=== PATIENT | female | born 1990 | race Caucasian/White ===

== ENCOUNTER 2017-11-13 08:37 | Emergency (ER) | payer OTHER ==
[~2017-11-13] VITALS: Ht 157.5 cm; Wt 56.2 kg
[2017-11-13 08:43] VITALS: BP 122/82
[2017-11-13] MEDS ORDERED: MEDROL4 M2 PO (09:07)
--- NOTE | 2017-11-13 09:07 | ED GENERAL ADULT ---
History of Present Illness General Chief Complaint: Allergy Symptoms Stated Complaint: HIVES ALL OVER Source: patient Exam Limitations: no limitations Vital Signs & Intake/Output Vital Signs & Intake/Output Vital Signs Date Time Temp Pulse Resp B/P B/P Pulse O2 O2 Flow FiO2 Mean Ox Delivery Rate 11/13 0843 97.1 74 20 122/82 98 Room Air Allergies Coded Allergies: No Known Allergies (11/13/17) Reconcile Medications Epinephrine (Epipen) 0.3 MG/0.3 ML AUTO.INJCT 1 INJ IM ONCE PRN anaphylaxis Methylprednisolone. (Medrol) 4 MG TAB.DS.PK 1 DP PO AD rash 6 on day 1 then reduce by one tablet daily until gone Triage Note: PT TO ED C/O FULL BODY HIVES AND FACIAL SWELLING SINCE THIS AM. STATES SINCE LAST MONDAY SHE HAS BEEN HAVING A REACTION TO SOMETHING, BUT WORSE THIS AM. DENIES NEW SOAP, DETERGENT, LOTION, FOOD. HAS TRIED OTC PEPCID AND BENADRYL. HAS NOT TAKEN TODAY. Triage Nurses Notes Reviewed? yes Onset: Gradual Duration: day(s): Timing: intermittent : No Patient currently breastfeeds: No HPI: Any 7-year-old otherwise healthy female presented with intermittent rashes times 6 days. She reports full body hives that will intermittently improve with Benadryl and Pepcid. This morning she had worsening of the hives and some left- sided subjective eye swelling. The patient has no known allergies. She thinks that she is having an allergic reaction to something, but is unsure of what. She denies any new products. No recent fevers or infectious symptoms. No sick contacts. Denies dysphasia, lip/tongue swelling, chest pain, shortness of breath, abdominal pain, nausea, vomiting. Past History Travel History Traveled to [place] past 21 day No Medical History Any Pertinent Medical History? none Surgical History Surgical History: non-contributory Psychosocial History What is your primary language Kinyarwanda Tobacco Use: Never used ETOH Use: denies use Illicit Drug Use: denies illicit drug use Family History Hx Contributory? No Review of Systems Review of Systems Constitutional: Reports: no symptoms. EENTM: Reports: no symptoms. Respiratory: Reports: no symptoms. Cardiovascular: Reports: no symptoms. GI: Reports: no symptoms. Genitourinary: Reports: no symptoms. Musculoskeletal: Reports: no symptoms. Skin: Reports: see HPI. Neurological/Psychological: Reports: no symptoms. Hematologic/Endocrine: Reports: no symptoms. Immunologic/Allergic: Reports: no symptoms. All Other Systems: Reviewed and Negative Physical Exam Physical Exam General Appearance: well developed/nourished, no apparent distress, alert, awake Comments: Gen.: Well-nourished, well-developed, no acute distress. Head: Normocephalic, atraumatic. Eyes: Normal inspection bilaterally, no objective periorbital edema Ears: Normal inspection bilaterally Nose: Normal inspection Throat: No oropharyngeal edema, no angioedema Neck: Normal inspection Lungs: clear to auscultation bilaterally, normnal breath sounds Heart: regular rate and rhythm Abdomen: soft and non-tender Extremities: Normal inspection Neurologic: alert and oriented x3, steady gait Skin: warm and dry, diffuse full body hives Psychiatric: Normal mood and affect, no apparent delusions or hallucinations, behavior appropriate Core Measures ACS in differential dx? No CVA/TIA Diagnosis: No Sepsis Present: No Sepsis Focused Exam Completed? No Progress Differential Diagnoses I considered the following diagnoses in my evaluation of the patient: [Allergic reaction versus contact dermatitis versus viral exanthem, no evidence of anaphylaxis] Plan of Care: Patient given Rx Medrol Dosepak. Instructed to continue Benadryl and Pepcid. Given follow-up with dermatology and counseled on strict return precautions. Given an Rx for EpiPen to keep on her and states that she is already counseled on EpiPen use. Initial ED EKG: none Departure Departure Disposition: HOME OR SELF CARE Condition: Stable Clinical Impression Primary Impression: Rash Referrals: Cade COLEMAN,Callum Unknown (PCP/Family) Additional Instructions: Take Medrol Dosepak as prescribed. Continue Benadryl and Pepcid. Follow-up with dermatology for reevaluation. Return to the emergency department for any new or worsening symptoms. Departure Forms: Customer Survey General Discharge Information Prescriptions: Current Visit Scripts Methylprednisolone. (Medrol) 1 DP PO AD #1 DP 6 on day 1 then reduce by one tablet daily until gone Epinephrine (Epipen) 1 INJ IM ONCE PRN anaphylaxis #1 INJ Critical Care Note Critical Care Note Critical Care Time: non-applicable
[2017-11-13] MEDS ORDERED: EPIPEN0.3 MG/0.1 IM (09:15)
== END 2017-11-13 09:13 ==
LOC: ERH 08:37
DX: R21 Rash and other nonspecific skin eruption (principal)